=== PATIENT | male | born 1995 | race Caucasian/White ===

== ENCOUNTER 2018-06-25 21:35 | Emergency (ER) | payer BC ==
[2018-06-25 22:13] LABS: PLATELET COUNT 210 10^3/uL (150-400)
--- NOTE | 2018-06-25 22:14 | EDPHY ---
H & P Stated Complaint: fever, chills, abd pain, and lightheadness Time Seen by Provider: 06/25/18 21:54 HPI/ROS: Chief Complaint: Fever, chills, abdominal pain, possible malaria HPI: Healthy 23-year-old male return from a trip to [place] earlier this evening. 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 For the last 24-48 hours he has been having intermittent fevers and chills with some abdominal and chest pain. No leg pain or swelling. Symptoms began before he started on his trans caught in a plane flight. Currently is complaining of some general malaise. No cough. No nausea or vomiting. He had did not measure his temperature. He did initiate malaria prophylaxis 3 days before travel in his continued it during his stay taking Malarone. ROS: 10 systems were reviewed and were negative except those elements noted in the HPI. PMH: None Social History: No smoking, no alcohol, no recreational drug use Family History: non-contributory Physical Exam: Gen: Awake, Alert, No Distress HEENT: Nose: no rhinorrhea Eyes: PERRLA, EOMI Mouth: Moist mucosa Neck: Supple, no JVD Chest: nontender, lungs clear to auscultation Heart: S1, S2 normal, no murmur Abd: Soft, non-tender, no guarding Back: no CVA tenderness, no midline tenderness Ext: no edema, non-tender Skin: no rash Neuro: CN II-XII intact, Sensation grossly intact, Strength 5/5 in bilateral upper and lower extremities - Personal History Current Tetanus/Diphtheria Vaccine: Yes Current Tetanus Diphtheria and Acellular Pertussis (TDAP): Yes - Medical/Surgical History Hx Asthma: No Hx Chronic Respiratory Disease: No Hx Diabetes: No Hx Cardiac Disease: No Hx Renal Disease: No Hx Cirrhosis: No Hx Alcoholism: No Hx HIV/AIDS: No Hx Splenectomy or Spleen Trauma: No Other PMH: denies - Social History Smoking Status: Never smoked Constitutional: Initial Vital Signs Temperature (C) 37.2 C 06/25/18 21:37 Heart Rate 65 06/25/18 21:37 Respiratory Rate 16 06/25/18 21:37 Blood Pressure 137/75 H 06/25/18 21:37 O2 Sat (%) 100 06/25/18 21:37 O2 Delivery Mode Room Air Allergies/Adverse Reactions: Penicillins Allergy (Verified 06/25/18 21:40) Home Medications: Medication Instructions Recorded NK [No Known Home Meds] 06/25/18 Medical Decision Making ED Course/Re-evaluation: 23-year-old male presenting with concerns he might have contracted malaria will troponin [place]. He is afebrile here. He is symptom-free. Is benign exam. His CBC is completely normal. His malaria smears pending. I have discussed with Dr. Jcarlos Walsh, infectious Disease. He believes that given a normal CBC and the fact that the patient had been taking appropriate prophylaxis that it is highly unlikely that the patient has contracted malaria. He has recommended the patient be discharged. He will follow up with the patient 1-2 days once the official molar real smear results are back. He is requesting LFTs and blood cultures which she will follow up on. He is not recommend any further treatments at this time. I have counseled the patient regarding this. He will follow up with Infectious Disease per this plan, return for any concerns. - Data Points Laboratory Results: Laboratory Results 06/25/18 21:55 06/25/18 21:55 Departure - Departure Disposition: Home, Routine, Self-Care Clinical Impression: Fever Condition: Good Instructions: Fever in Adults (ED) Additional Instructions: Alternate acetaminophen (1000 mg) with ibuprofen (400 mg) every 4 hours as needed for fevers, chills, aches or pain. Follow up with Dr. Jcarlos Walsh, infectious Disease, in 1-2 days for your malaria test results and further evaluation. Return to the emergency department for uncontrolled high fevers, uncontrolled vomiting, fainting, chest pain, shortness of breath, or any other concerns. Referrals: Jcarlos Walsh MD [Medical Doctor] - As per Instructions NONA NOLE MD [Other] - As per Instructions
[2018-06-25 22:37] VITALS: BP 130/80
[2018-06-26 00:22] LABS: MALARIAL PREP NONE SEEN (NONE SEEN)
== END 2018-06-25 23:07 | disposition home or self-care (01) ==
DX: R50.9 Fever, unspecified (principal); R10.9 Unspecified abdominal pain